=== PATIENT | male | born 1980 | race Two or more races ===

== ENCOUNTER 2018-03-14 03:21 | Emergency (ER) | payer BC ==
[~2018-03-14] VITALS: Ht 182.9 cm; Wt 88.9 kg
[2018-03-14] MEDS ORDERED: SOLU-MEDROL IV STA (03:31)
[2018-03-14] MEDS ORDERED: NORFLEX IM STA (03:31)
[2018-03-14] MEDS ORDERED: TORADOL IV STA (03:31)
[2018-03-14] MEDS ORDERED: NORFLEX ONE (03:33)
[2018-03-14] MEDS ORDERED: SOLU-MEDROL ONE (03:33)
[2018-03-14] MEDS ORDERED: TORADOL ONE (03:34)
--- NOTE | 2018-03-14 03:46 | ER.PDOC ---
General Chief Complaint: Extremities Stated Complaint: SCIATICA RIGHT LEG Time seen by MD: 03:27 Source: patient Exam Limitations: no limitations History of Present Illness Initial Comments pt had episode of low back pain radiating down right leg. recently had same thing treated with chiropractic last week but it has returned and has increased in pain this evening Timing/Duration: just prior to arrival Severity/Quality: severe Radiation: lower legs Method of Injury: unknown Modifying Factors: improves with immobilization Associated Symptoms: muscle spasms, other (pain ) Prior symptoms/Treatment: Similar symptoms previous, Recenly Seen, Treated by Doctor, No Recently Hospitalized Allergies: Coded Allergies: aspirin (Verified Allergy, Unknown, 03/14/18) Past Medical History Medical History: no pertinent history Surgical History: no surgical history Family History Significant Family History: no pertinent family hx Social History Smoking: non-smoker Alcohol Use: none Drug Use: none Reviewed Nursing Reviewed: Vital Signs, Abn. Noted Review of Systems Constitutional: no symptoms reported EENTM: no symptoms reported Respiratory: no symptoms reported Cardiovascular: no symptoms reported Gastrointestinal: no symptoms reported Genitourinary: no symptoms reported Musculoskeletal: see HPI, muscle pain Psychiatric/Neurological: see HPI Physical Exam General Appearance: Moderate Distress HEENT: PERRL/EOMI, Normal ENT Inspection, TMs Normal, Pharynx Normal Neck: Non-Tender, Normal Alignment Cardiovascular/Respiratory: Regular Rate, Rhythm, No M/R/G, Normal Peripheral Pulses, No JVD, Normal Breath Sounds, No Respiratory Distress Gastrointestinal: Normal Bowel Sounds, No Organomegaly, No Pulsatile Mass, Non Tender, Soft Back: Normal Inspection, No CVA Tenderness, No Vertebral Tenderness Extremities: No Evidence of Injury, Pain With Movement (right leg) Neuro/Psych: Other (pain elicited with movement) Skin: Normal Color, Warm/Dry Results/Orders Results/Orders Administered Medications Medications (Trade) Dose Ordered Sig/Linda Route PRN Reason Start Time Stop Time Status Last Admin Dose Admin Ketorolac Tromethamine (Toradol) 30 mg STAT STAT IV 03/14/18 03:31 03/14/18 03:33 DC 03/14/18 03:44 Methylprednisolone Sodium Succinate (Solu-Medrol) 125 mg STAT STAT IV 03/14/18 03:31 03/14/18 03:33 DC 03/14/18 03:44 Orphenadrine Citrate (Norflex) 60 mg STAT STAT IM 03/14/18 03:31 03/14/18 03:33 DC 03/14/18 03:44 Progress Progress able to stand, voiding spontaneously no neuro deficit, gait is antalgic Course Blood Pressure Systolic: 137 Blood Pressure Diastolic: 47 Blood Pressure Mean: 77 Departure Time of Disposition: 04:43 Disposition: 01 HOME, SELF-CARE Impression: Primary Impression: Sciatica of right side Condition: Improved Comments follow up with chiropractor Duration or Time Spent with Pa: 15 CHRIS HWANG MD Mar 14, 2018 03:46
--- NOTE | 2018-03-14 04:54 | NUR ---
IV DC'D TIP INTACT, NO BLEEDING
[2018-03-14 04:58] VITALS: BP 126/51
== END 2018-03-14 04:56 | disposition home or self-care (01) ==
LOC: ER 03:21
DX: M54.41 Lumbago with sciatica, right side (principal); Z88.6 Allergy status to analgesic agent
CPT/HCPCS: 96372; 96374; 96375; 99284; J1885; J2360; J2930